=== PATIENT | male | born 1970 | race African-American/Black ===

== ENCOUNTER 2018-04-14 20:49 | Emergency (ER) | payer OTHER ==
[~2018-04-14] VITALS: Ht 172.7 cm; Wt 93.0 kg
[2018-04-14 21:00] VITALS: BP 163/97
[2018-04-14] MEDS ORDERED: DIPHTH,PERTUSS(ACELL),TET TOX 0.5 ML DISP.SYRIN. VAX IM ONE (22:00)
[2018-04-14] MEDS ORDERED: LIDOCAINE/EPI/TETRACAINE TOPICAL GEL 3 ML. TP ONE (22:00)
--- NOTE | 2018-04-14 22:42 | PHYS DOC ---
Past Medical History Past Medical History: No Pertinent History Alcohol Use: Occasionally Drug Use: None Adult General Chief Complaint Chief Complaint: LACERATION/AVULSION HPI HPI Patient is a 47 year old female who presents to the emergency Department today with complaints of a laceration to his scalp. Patient states he was participating a cook candy off when the lid to his smoker fell down and struck his head. Patient denies any loss consciousness, nausea, vomiting, dizziness, headache, or vision changes. Currently reports his pain is 1 out of 10 on the pain scale, he is unsure when his last tetanus was. Review of Systems Review of Systems Constitutional: Denies fever or chills [] Eyes: Denies change in visual acuity, redness, or eye pain [] HENT: Denies nasal congestion or sore throat [] Musculoskeletal: Denies back pain or joint pain [] Integument: Denies rash, reports laceration to top of scalp Neurologic: Denies headache, focal weakness or sensory changes [] All other systems were reviewed and found to be within normal limits, except as documented in this note. Current Medications Current Medications Current Medications Medications (Trade) Dose Ordered Sig/Percy Start Time Stop Time Status Last Admin Dose Admin Diphtheria/ Tetanus/Acell Pertussis (Boostrix) 0.5 ml ONCE ONCE 04/14/18 22:00 04/14/18 22:01 DC 04/14/18 22:00 0.5 ML Lidocaine/ Epinephrine (Let Topical) 3 ml 1X ONCE 04/14/18 22:00 04/14/18 22:01 DC 04/14/18 22:00 3 ML Allergies Allergies Allergies Coded Allergies Type Severity Reaction Last Updated Verified No Known Drug Allergies 04/14/18 No Physical Exam Physical Exam Constitutional: Well developed, well nourished, no acute distress, non-toxic appearance. [] HENT: Normocephalic, atraumatic, bilateral external ears normal, oropharynx moist, no oral exudates, nose normal. [] Eyes: PERRLA, conjunctiva normal, no discharge. [] Neck: Normal range of motion, no tenderness, supple, no stridor. [] Skin: Warm, dry, no erythema, no rash; 7 cm laceration to anterior top of scalp , no active bleeding [] Neurologic: Alert and oriented X 3, normal motor function, normal sensory function, no focal deficits noted. [] Psychologic: Affect normal, judgement normal, mood normal. [] Current Patient Data Vital Signs Vital Signs Date Time Temp Pulse Resp B/P (MAP) Pulse Ox O2 Delivery O2 Flow Rate FiO2 04/14/18 21:00 98.6 108 18 163/97 (119) 96 Room Air 98.6 EKG EKG [] Radiology/Procedures Radiology/Procedures Indication: scalp laceration [] Procedure: The patient was placed in the appropriate position and anesthesia around the scalp laceration was LET. The area was then cleansed with a surgical scrub brush and normal saline. The laceration was then stapled with 11 surgical luis. Total repaired wound length: 7 cm The patient tolerated the procedure well. Complications: none Course & Med Decision Making Course & Med Decision Making Pertinent Labs and Imaging studies reviewed. (See chart for details) Laceration repair. Stable instructions given. Wound recheck in 48 hours. Return to the ER or go to your primary care doctor for staple removal in 7-10 days. Tylenol or ibuprofen as needed for pain. Patient verbalized an understanding of home care, medications, follow-up, and return to ED instructions and was in agreement with the plan of care. [] Dragon Disclaimer Dragon Disclaimer This electronic medical record was generated, in whole or in part, using a voice recognition dictation system. Departure Departure Impression: Primary Impression: Scalp laceration Additional Impression: Closed head injury without loss of consciousness Disposition: 01 HOME, SELF-CARE Condition: STABLE Referrals: ROBERT ALEXIS MD (PCP) Patient Instructions: Head Injury, Adult, [id number], Staple Wound Closure, [id number], Tetanus and Diphtheria Vaccine Additional Instructions: Follow the head injury precautions provided. Keep the area clean and dry, no swimming or submerging head underwater until the luis are removed. Wound recheck in 48 hours and have the luis removed in 7-10 days. He may take Tylenol or ibuprofen as needed for pain. Return to the ER if symptoms worsen. Problem Qualifiers Primary Impression: Scalp laceration Encounter type: initial encounter Qualified Codes: S01.01XA - Laceration without foreign body of scalp, initial encounter Additional Impression: Closed head injury without loss of consciousness Encounter type: initial encounter Qualified Codes: S09.90XA - Unspecified injury of head, initial encounter RICARDO CASTILLO STUDIO DESIGNER Apr 14, 2018 22:42
== END 2018-04-14 22:45 | disposition home or self-care (01) ==
LOC: ER 20:49
DX: S01.01XA Laceration without foreign body of scalp, initial encounter (principal); W22.8XXA Striking against or struck by other objects, initial encounter; Y93.89 Activity, other specified; Y92.89 Other specified places as the place of occurrence of the external cause; Y99.8 Other external cause status
CPT/HCPCS: 12002; 90471; 90715; 99283-25